=== PATIENT | female | born 1960 | race Caucasian/White ===

== ENCOUNTER → 2024-11-18 | Outpatient (CLI) | payer OTHER, SELFPAY ==
[2024-11-18 17:52] LABS: Hematocrit 40.9 % (37-47); Hemoglobin 13.7 g/dL (12.0-15.0); Immature Granulocytes Count 0.010 X10^3/uL (0.0-0.0); Mean Corp Hgb Conc 33.5 g/dL (32-36); Mean Corpuscular Volume 93.6 fL (81-99); Mean Platelet Vol. 12.0 fl (6.2-12.0); NRBC Flagged by Analyzer 0 % (0-5); Platelet Count 173 K/mm3 (150-450); RBC Distribution Width CV 12.9 % (11.6-14.6); RBC Distribution Width SD 44.2 fl (35.1-43.9); Red Blood Count 4.37 M/mm3 (4.2-5.4); White Blood Count 7.6 K/mm3 (4.4-11.0)
[2024-11-18 18:35] LABS: AST(SGOT) 26 U/L (<=31); Alanine Aminotransfer ALT/SGPT 20 U/L (<=34); Albumin, Serum 4.8 g/dL (3.4-4.8); Alkaline Phosphatase 67 U/L (35-104); Anion Gap 14 (5-15); BUN 12 mg/dL (4-19); BUN/Creat Ratio 24.8 RATIO (10-20); Calcium,Total 9.9 mg/dL (7.6-11.0); Carbon Dioxide 24.2 mmol/L (21.0-32.0); Chloride 98 mmol/L (98-108); Globulin 2.6 g/dL (2.2-4.2); Glucose 83 mg/dL (70-99); Potassium 4.0 mmol/L (3.3-5.1)
[2024-11-20 14:08] LABS: Anti-dsDNA Ab <1 IU/mL (0-9)
[2024-11-23 23:07] LABS: Zinc, Plasma or Serum 69 ug/dL (44-115)
== END | disposition home or self-care (01) ==
LOC: MTLAB 14:10
PROVIDERS: Referring Provider Physician Assistant; Visit Provider Physician Assistant
DX: L65.9 Nonscarring hair loss, unspecified (principal); F43.0 Acute stress reaction; Z13.0 Encounter for screening for diseases of the blood and blood-forming organs and certain disorders involving the immune mechanism
CPT/HCPCS: 36415; 80053; 82627; 84439; 84630; 85025; 86038; 86225; 86376; 82626